=== PATIENT | male | born 1990 | race Two or more races ===

== ENCOUNTER 2017-05-07 23:51 | Emergency (ER) | payer OTHER ==
[~2017-05-07] VITALS: Ht 167.6 cm; Wt 86.4 kg
[2017-05-07 23:52] VITALS: BP 147/74
== END 2017-05-08 04:36 | disposition left against medical advice (07) ==
LOC: M ED 23:51
DX: Z53.21 Procedure and treatment not carried out due to patient leaving prior to being seen by health care provider (principal)